=== PATIENT | male | born 1975 | race Caucasian/White ===

== ENCOUNTER 2017-09-06 20:39 | Emergency (ER) | payer OTHER ==
[~2017-09-06] VITALS: Ht 188 cm; Wt 132.1 kg
[2017-09-06 21:10] LABS: HEMATOCRIT 46.8 % (38.0-50.0); HEMOGLOBIN 16.7 G/DL (12.5-16.6); MCH 31.4 PG (29.0-34.0); MCHC 35.7 G/DL (30.0-36.0); PLATELET COUNT 267 K/uL (156-360); RBC DIS.WIDTH-CV 12.5 % (11.8-14.6); RBC DIS.WIDTH-SD 39.9 % (39-53); RED BLOOD COUNT 5.32 M/uL (4.00-5.50); WHITE BLOOD COUNT 15.1 K/uL (4.1-10.2)
[2017-09-06 21:23] LABS: CHLORIDE 103 mEq/L (99-109); POTASSIUM 3.9 mEq/L (3.7-5.4); SODIUM 139 mEq/L (136-147)
[2017-09-06 21:25] LABS: GLUCOSE 93 mg/dL (70-99)
[2017-09-06 21:29] LABS: CREATININE 0.9 mg/dL (0.6-1.3); GFR ESTIMATE (CALCULATED) > 59 mL/min/ (58.99-99999)
[2017-09-06 21:30] LABS: UREA NITROGEN (BUN) 12 mg/dL (9-23)
[2017-09-06 21:35] LABS: TROP-I INTERPRETATION NEGATIVE; TROPONIN-I 0.08 ng/mL (0.0-0.30)
[2017-09-06] MEDS ORDERED: BACTRIM,SEPT1 TABLET PO (23:51)
[2017-09-06] MEDS ORDERED: CARAFATE1 GM PO (23:51)
[2017-09-07 00:01] VITALS: BP 133/80
== END 2017-09-07 00:03 | disposition home or self-care (01) ==
LOC: RME 20:39 → EME 20:39 → RME 09-07 00:03
DX: R07.9 Chest pain, unspecified (principal); L72.3 Sebaceous cyst; Z98.890 Other specified postprocedural states; Z86.14 Personal history of Methicillin resistant Staphylococcus aureus infection; M47.9 Spondylosis, unspecified; F43.10 Post-traumatic stress disorder, unspecified
CPT/HCPCS: 71046; 71260; 76536; 80048; 84484; 85027; 93005; 99281; 99284; J7030